=== PATIENT | female | born 2000 | race American Indian/Alaskan Native ===

== ENCOUNTER 2019-01-18 12:18 | Outpatient (CLI) | payer MEDICAID ==
[2019-01-18 12:54] VITALS: BP 108/66
== END 2019-01-18 12:20 | disposition still patient (30) ==
LOC: TRG 12:18
PROVIDERS: ATTEND Obstetrics & Gynecology
DX: O47.03 False labor before 37 completed weeks of gestation, third trimester (principal); Z3A.30 30 weeks gestation of pregnancy
CPT/HCPCS: 59025

== ENCOUNTER 2019-01-18 13:26 | Emergency (ER) | payer MEDICAID ==
[2019-01-18] MEDS ORDERED: NACL 0.9% 1000 ML 1,000 ML IV ONE ×2 (13:44→15:18)
[2019-01-18] MEDS ORDERED: MORPHINE IV ONE (13:44)
[2019-01-18] MEDS ORDERED: PEPCID IV ONE (13:44)
[2019-01-18] MEDS ORDERED: ZOFRAN IV ONE (13:45)
[2019-01-18 13:48] VITALS: BP 106/58
[2019-01-18 14:26] LABS: Basophils % (Auto) 0.2 % (0.0-1.8); Eosinophils % (Auto) 0.1 % (0.0-4.3); Hematocrit 33.6 % (30.3-42.9); Hemoglobin 11.4 gm/dl (10.1-14.3); Lymphocytes % (Auto) 8.1 % (13.4-35.0); Mean Corpuscular HGB Conc 34 % (30-34); Mean Corpuscular Volume 86 fl (79-97); Monocytes # (Auto) 0.4 K/mm3 (0.0-0.8); Monocytes % (Auto) 3.6 % (0.0-7.3); Platelet Count 192 K/mm3 (140-440); Red Blood Count 3.91 M/mm3 (3.65-5.03); Red Cell Distribution Width 13.5 % (13.2-15.2)
[2019-01-18 14:51] LABS: Alanine Aminotransferase 22 units/L (7-56); Albumin 3.9 g/dL (3.9-5); BUN/Creatinine Ratio 22; Blood Urea Nitrogen 13 mg/dL (7-17); Calcium 8.8 mg/dL (8.4-10.2); Hemolysis Index 1
[2019-01-18 15:04] LABS: Bilirubin,Direct < 0.2 mg/dL (0-0.2)
[2019-01-18] MEDS ORDERED: BENADRYL IV ONE (15:18)
[2019-01-18] MEDS ORDERED: TYLENOL PO ONE (15:18)
--- NOTE | 2019-01-18 15:25 | Emergency Department Report ---
ED Abdominal Pain HPI - General Chief Complaint: Abdominal Pain Stated Complaint: ABD PAIN/CRAMPING/ 7 MTHS PREG Time Seen by Provider: 01/18/19 15:12 Source: patient Mode of arrival: Wheelchair Limitations: No Limitations - History of Present Illness Initial Comments: Karen is a 18 yo female who is currently 30 weeks 2 days according to [facility] 03/27/2019. She awakened with epigastric pain this morning. Pulling sensation. vomiting filled 10 emesis bags today. 2 episodes of diarrhea. Stool culture obtained in L&D. Ate fast food [employer] last night. Had morning sickness in the first trimester. No vomiting since. [facility] hx of infectious colitis one year ago, diagnosed in [facility] Complaint: abdominal pain -: Gradual, This morning Location: epigastric Radiation: none Severity: moderate Quality: fullness, dull Consistency: constant Improves With: nothing Worsens With: nothing Context: possible food poisoning Associated Symptoms: nausea, vomiting, diarrhea - Related Data Previous Rx's Medication Instructions Recorded Last Taken Type Ondansetron [Zofran Odt] 4 mg PO Q8HR #6 tab.rapdis 01/18/19 Unknown Rx Allergies Allergy/AdvReac Type Severity Reaction Status Date / Time No Known Allergies Allergy Unverified 01/18/19 13:35 ED Review of Systems ROS: Stated complaint: ABD PAIN/CRAMPING/ 7 MTHS PREG Other details as noted in HPI Comment: All other systems reviewed and negative Constitutional: malaise. denies: fever Cardiovascular: denies: palpitations Gastrointestinal: abdominal pain, nausea, vomiting, diarrhea Musculoskeletal: denies: back pain ED Past Medical Hx - Past Medical History Previous Medical History?: No Hx Hypertension: No Hx Diabetes: No Hx Deep Vein Thrombosis: No Hx Renal Disease: No Hx Sickle Cell Disease: No Hx Seizures: No Hx Asthma: No Hx HIV: No - Surgical History Past Surgical History?: No - Family History Family history: other (mother with colitis) - Social History Smoking Status: Never Smoker Substance Use Type: None - Medications Home Medications: Home Medications Medication Instructions Recorded Confirmed Last Taken Type Ondansetron [Zofran Odt] 4 mg PO Q8HR #6 tab.rapdis 01/18/19 Unknown Rx ED Physical Exam - General Limitations: No Limitations General appearance: alert, in no apparent distress - Head Head exam: Present: atraumatic, normocephalic - Eye Eye exam: Present: normal appearance - ENT ENT exam: Present: mucous membranes moist - Neck Neck exam: Present: normal inspection, full ROM - Respiratory Respiratory exam: Present: normal lung sounds bilaterally. Absent: respiratory distress, wheezes, rales, rhonchi - Cardiovascular Cardiovascular Exam: Present: regular rate, normal rhythm, normal heart sounds. Absent: systolic murmur, diastolic murmur, rubs, gallop - GI/Abdominal GI/Abdominal exam: Present: soft, distended (gravid), normal bowel sounds. A bsent: tenderness, guarding, rebound - Extremities Exam Extremities exam: Present: normal inspection - Back Exam Back exam: Present: normal inspection - Neurological Exam Neurological exam: Present: alert, oriented X3 - Psychiatric Psychiatric exam: Present: normal affect, normal mood - Skin Skin exam: Present: warm, dry, intact, normal color. Absent: rash ED Course Vital Signs 01/18/19 13:46 Temperature 98.7 F Pulse Rate 96 H Respiratory 20 Rate Blood Pressure 106/58 O2 Sat by Pulse 99 Oximetry ED Medical Decision Making - Lab Data Result diagrams: 01/18/19 14:06 01/18/19 14:06 - Medical Decision Making Karen presents with vomiting and diarrhea, suspect food poisoning. CMP WNL, nonspecific leukocytosis No indication of peritonitis. I do not suspect cholecystitis or appendicitis. Differential diagnosis includes cholelithiasis, gastritis, peptic ulcer disease. Karen was evaluated in labor and delivery to rule out labor prior to ED evaluation. Karen treated with IVF IV analgesia, IV antiemetics, IV H2 antagonist. Sympt oms improved. No vomiting occurred during ED observation. Rx: zofran. dx: food poisoning, Critical care attestation.: If time is entered above; I have spent that time in minutes in the direct care of this critically ill patient, excluding procedure time. ED Disposition Clinical Impression: Food poisoning, Third trimester Disposition: DC-01 TO HOME OR SELFCARE Is pt being admited?: No Does the pt Need Aspirin: No Condition: Stable Instructions: Food Poisoning (ED) Prescriptions: Ondansetron [Zofran Odt] 4 mg PO Q8HR #6 tabsusu
== END 2019-01-18 17:37 | disposition home or self-care (01) ==
LOC: ED 13:26
DX: O9A.213 Injury, poisoning and certain other consequences of external causes complicating pregnancy, third trimester (principal); Z3A.30 30 weeks gestation of pregnancy
CPT/HCPCS: 36415; 80048; 80076; 83690; 85025; 96361; 96374; 96375; 99283; J1200; J2405; J7030

== ENCOUNTER 2019-01-30 15:40 | Outpatient (CLI) | payer MEDICAID ==
[2019-01-30] MEDS ORDERED: BETAMET ACET/BETAMET NA PH 6 MG/ML INJ 5 ML MDV IM SCH (17:00)
== END 2019-01-30 16:58 | disposition home or self-care (01) ==
LOC: TRG 15:40
PROVIDERS: ATTEND Obstetrics & Gynecology
DX: O36.0110 Maternal care for anti-D [Rh] antibodies, first trimester, not applicable or unspecified (principal); Z31.82 Encounter for Rh incompatibility status; Z3A.08 8 weeks gestation of pregnancy
CPT/HCPCS: 86850; 86900; 86901; 96372; J0702; J2790

== ENCOUNTER 2019-03-14 06:08 | Inpatient (IN) | payer MEDICAID ==
--- NOTE | 2019-03-14 16:01 | History and Physical Report ---
History of Present Illness Date of examination: 03/14/19 Date of admission: 03/14/19 14:20 Chief complaint: 18 year old female presents to L&D with contractions. Denies LOF or VB. Reports active movement. Patient received care at [facility] and records are available. LMP 06/20/18. EDC 03/27/19. significant for the following: anemia (on oral iron supplements), family history of autism (brother), gonorrhea (treated, TREVOR negative), late care and late transfer in from [place], positive FFN (received steroid injection times 2 at [facility]), Rh negative (received RhoGAM). labs are as follows: A negative, antibody screen negative, rubella immune, RPR nonreactive, HIV negative, hepatitis B surface antigen negative, hemoglobin electrophoresis AA, gonorrhea negative, chlamydia negative, varicella immune, HSV 2 negative, trichomonas negative, GBS negative. Past History Past Medical History: no pertinent history Past Surgical History: no surgical history [facility] History: gonorrhea (treated during and cured). denies: chlamydia, hepatitis B, herpes, HIV, syphilis, trichomonas Family/Genetic History: diabetes, hypertension, other (hepatitis) Social history: single, lives with family, full code. denies: smoking, alcohol abuse, prescription drug abuse, IV drug use - Obstetrical History Expected Date of Delivery: 03/27/19 Actual Gestation: 38 Week(s) 1 Day(s) : 1 Para: 0 Hx # Term Pregnancies: 0 Number of Pregnancies: 0 Spontaneous Abortions: 0 Induced : 0 Number of Living Children: 0 Medications and Allergies Allergies Allergy/AdvReac Type Severity Reaction Status Date / Time No Known Allergies Allergy Verified 01/24/19 12:48 Home Medications Medication Instructions Recorded Confirmed Last Taken Type 147/Iron/Folic Acid 1 tab PO DAILY 01/30/19 03/14/19 03/13/19 History Active Meds: Active Medications Multivitamins/Iron/Calcium ( Vitamin) 1 each PO QDAY ARPIT Review of Systems All systems: negative (contractions) - Vital Signs Vital signs: Vital Signs Pulse BP 59 L 110/54 03/14/19 06:25 03/14/19 06:25 Temp Pulse Resp BP Pulse Ox 97.4 F L 73 16 122/58 98 03/14/19 14:46 03/14/19 15:54 03/14/19 14:46 03/14/19 14:42 03/14/19 15:54 - Physical Exam Abdomen: Positive: normal appearance, soft. Negative: distention, tenderness, guarding, rigidity Genitourinary (Female): Positive: normal external genitalia, normal perenium. Negative: perineal/vulvar lesions Vagina: Positive: normal moisture Uterus: Positive: enlarged (S=D) Anus/Rectum: Positive: normal perianal skin Extremities: Positive: normal. Negative: tenderness, edema - Obstetrical FHR: category 1 Uterine Contraction Monitor Mode: External Cervical Dilatation: 4 Cervical Effacement Percentage: 70 station: -1 Uterine Contraction Pattern: Regular Uterine Contraction Intensity: Moderate Results Result Diagrams: 03/14/19 15:15 All other labs normal. Assessment and Plan A: at 38 weeks, 1 day gestation. Early labor vs. prodromal labor. Lives distance from hospital. GBS negative. P: Admit for 23 hour observation. EFM. Recheck cervix.
[2019-03-14 16:04] LABS: Basophils % (Auto) 0.6 % (0.0-1.8); Eosinophils % (Auto) 0.6 % (0.0-4.3); Hematocrit 29.2 % (30.3-42.9); Hemoglobin 10.2 gm/dl (10.1-14.3); Lymphocytes # (Auto) 1.7 K/mm3 (1.2-5.4); Lymphocytes % (Auto) 21.5 % (13.4-35.0); Mean Corpuscular HGB Conc 35 % (30-34); Mean Corpuscular Volume 85 fl (79-97); Monocytes # (Auto) 0.4 K/mm3 (0.0-0.8); Monocytes % (Auto) 4.6 % (0.0-7.3); Platelet Count 128 K/mm3 (140-440); Red Blood Count 3.46 M/mm3 (3.65-5.03); Red Cell Distribution Width 14.3 % (13.2-15.2)
--- NOTE | 2019-03-15 09:33 | Progress Note ---
Assessment and Plan A: at 38 weeks, 2 days gestation. Early labor. GBS negative. Variable FHR deceleration. P: Continuous EFM. Anticipate that patient will soon be in active labor. Position changes. Subjective - Subjective Date of service: 03/15/19 Principal diagnosis: at 38 weeks, 2 days getation Interval history: Early labor. Lives long way from hospital. No leaking of fluid. No vaginal bleeding. Reports active movement. Patient reports: movement normal, contractions, no new complaints, no loss of fluid, no vaginal bleeding Objective - Vital Signs Vital Signs: Vital Signs - 12hr 03/15/19 03/15/19 03/15/19 03:23 06:33 07:10 Temperature 97.6 F 97.9 F 98.1 F Pulse Rate 55 L Respiratory 16 14 Rate Blood Pressure 98/54 Blood Pressure 98/54 [Left] 03/15/19 07:14 Temperature Pulse Rate 51 L Respiratory Rate Blood Pressure 119/70 Blood Pressure [Left] - Exam Abdomen: Present: normal appearance, soft. Absent: distention, tenderness, guarding, rigidity Uterus: Present: normal, fundal height above umbilicus. Absent: tenderness FHR: category 2 FHR comments: Occasional brief variable FHR deceleration with rapid return to normal FHR baseline; moderate variability. Uterine Contraction Monitor Mode: External Cervical Dilatation: 4.5 Cervical Effacement Percentage: 90 station: -1/BBOW/cervix anterior Uterine Contraction Pattern: Irregular Uterine Contraction Intensity: Moderate Extremities: normal - Labs Labs: Abnormal Labs 03/14/19 15:15 RBC 3.46 L Hct 29.2 L MCHC 35 H Plt Count 128 L Seg Neutrophils % 72.7 H Laboratory Results - last 24 hr 03/14/19 15:15 WBC 8.1 RBC 3.46 L Hgb 10.2 Hct 29.2 L MCV 85 MCH 30 MCHC 35 H RDW 14.3 Plt Count 128 L Lymph % (Auto) 21.5 [place] % (Auto) 4.6 Eos % (Auto) 0.6 Baso % (Auto) 0.6 Lymph # 1.7 [place] # 0.4 Eos # 0.0 Baso # 0.0 Seg Neutrophils % 72.7 H Seg Neutrophils # 5.9
[2019-03-15] MEDS: PRENATAL VIT27-FE FUMARATE-FOLIC ACID VIT TAB PO SCH (10:13)
--- NOTE | 2019-03-15 15:23 | Event Note ---
Date: 03/15/19 SVE /-/BBOW. Category 1 heart rate tracing.
[2019-03-15] MEDS ORDERED: fentaNYL 100 MCG/2 ML INJ IV PRN (16:16)
[2019-03-15] MEDS ORDERED: AMPICILLIN/NS 2 GM/100 ML 2 GM/100 ML BAG IV ONE (16:16)
[2019-03-15] MEDS ORDERED: LIDOCAINE (2%) 20 MG/1 ML VIAL 20 ML MDV INFILTRATI ONE (16:16)
[2019-03-15] MEDS ORDERED: ePHEDrine SULFATE 50 MG/1 ML INJ IV PRN (16:16)
[2019-03-15] MEDS ORDERED: OXYTOCIN 20 UNIT/1000ML DRIP 20 UNITS/1,000 ML BAG IV SCH (17:00)
[2019-03-15] MEDS: LACTATED RINGERS 1,000 ML IV SCH (17:51)
--- NOTE | 2019-03-15 20:55 | Event Note ---
Date: 03/15/19 Patient requests to have her cervix checked. Cervix unchanged from last exam: /-. Patient declined augmentation of labor with Pitocin. Patient requests to walk. Category 1 heart rate tracing. Contractions every 5 to 8 minutes.
[2019-03-15] MEDS: AMPICILLIN/NS 1 GM/50 ML 1 GM/50 ML BAG IV SCH ×2 (21:53→21:54)
[2019-03-16] MEDS ORDERED: OXYTOCIN DRIP 30 UNITS/500 ML BAG IV SCH (01:00)
[2019-03-16] MEDS ORDERED: ACETAMINOPHEN 325 MG TAB PO ONE (01:21)
[2019-03-16] MEDS: AMPICILLIN/NS 1 GM/50 ML 1 GM/50 ML BAG IV SCH ×4 (02:32→14:57)
[2019-03-16] MEDS: LACTATED RINGERS 1,000 ML IV SCH ×4 (02:39→12:52)
--- NOTE | 2019-03-16 06:43 | Event Note ---
Date: 03/16/19 Cervix is now 6 cm dilated. Patient consented to Pitocin augmentation of labor.
[2019-03-16] MEDS ORDERED: BUPIVACAINE/PF (0.25%) 2.5 MG/ML 10 ML VIAL INFILTRATI ONE ×2 (08:55→13:43)
--- NOTE | 2019-03-16 09:20 | Anesthesia Consultation ---
Anesthesia Consult and Med Hx Date of service: 03/16/19 - Airway Anesthetic Teeth Evaluation: Good ROM Head & Neck: Adequate Mental/Hyoid Distance: Adequate Mallampati Class: Class II Intubation Access Assessment: Good - Pulmonary Exam CTA: Yes - Cardiac Exam Cardiac Exam: RRR - Pre-Operative Health Status ASA Pre-Surgery Classification: ASA2, Emergency Proposed Anesthetic Plan: Epidural, Spinal - Pulmonary Hx Asthma: No COPD: No Hx Pneumonia: No - Cardiovascular System Hx Hypertension: No - Central Nervous System Hx Seizures: No Hx Psychiatric Problems: No - Endocrine Hx Renal Disease: No Hx End Stage Renal Disease: No Hx Hypothyroidism: No Hx Hyperthyroidism: No - Hematic Hx Anemia: No Hx Sickle Cell Disease: No - Other Systems Hx Alcohol Use: No
[2019-03-16] MEDS ORDERED: ePHEDrine SULFATE 50 MG/1 ML INJ IV PRN (09:30)
[2019-03-16] MEDS ORDERED: NALOXONE 2 MG/2 ML INJ IV PRN (09:30)
[2019-03-16] MEDS: PRENATAL VIT27-FE FUMARATE-FOLIC ACID VIT TAB PO SCH (09:52)
[2019-03-16] MEDS ORDERED: fentaNYL-BUPIV 2 MCG/ML-0.125% 200 MCG/100 ML BAG EPIDURAL SCH (10:00)
--- NOTE | 2019-03-16 10:19 | Progress Note ---
Assessment and Plan - Patient Problems (1) 38 weeks gestation of Current Visit: Yes Status: Acute (2) Active labor at term Current Visit: Yes Status: Acute Plan to address problem: Continue routine labor orders Pitocin @ 12 mu/min AROM @ 10:07, clear fluid, moderate amount Continue labor augmentation with Pitocin Anticipate vaginal delivery (3) Anemia affecting in third trimester Current Visit: Yes Status: Acute Plan to address problem: Mild, Asymptomatic Start iron therapy Subjective - Subjective Date of service: 03/16/19 Principal diagnosis: IUP @ 38 weeks 3 days; Active Labor Interval history: see H&P, OB Progress Notes and Event Notes Patient reports: new complaints (pressure), movement normal, contractions, other (Epidural in place), no loss of fluid, no vaginal bleeding Objective - Vital Signs Vital Signs: Vital Signs - 12hr 03/16/19 03/16/19 03/16/19 01:15 01:16 01:27 Temperature 97.9 F Pulse Rate 60 62 Respiratory 18 18 Rate Blood Pressure 123/73 Blood Pressure 123/75 [Right] O2 Sat by Pulse 100 99 Oximetry 03/16/19 03/16/19 03/16/19 03:20 03:25 05:42 Temperature Pulse Rate 69 67 49 L Respiratory Rate Blood Pressure 100/59 Blood Pressure [Right] O2 Sat by Pulse 99 100 100 Oximetry 03/16/19 03/16/19 03/16/19 05:47 05:52 05:57 Temperature Pulse Rate 52 L 55 L 99 H Respiratory Rate Blood Pressure Blood Pressure [Right] O2 Sat by Pulse 99 98 100 Oximetry 03/16/19 03/16/19 03/16/19 06:02 06:13 06:16 Temperature Pulse Rate 62 59 L 54 L Respiratory Rate Blood Pressure 116/64 Blood Pressure [Right] O2 Sat by Pulse 99 100 Oximetry 03/16/19 03/16/19 03/16/19 06:18 06:23 06:28 Temperature Pulse Rate 55 L 52 L 56 L Respiratory Rate Blood Pressure Blood Pressure [Right] O2 Sat by Pulse 100 99 100 Oximetry 03/16/19 03/16/19 03/16/19 06:33 06:38 06:43 Temperature Pulse Rate 75 57 L 52 L Respiratory Rate Blood Pressure Blood Pressure [Right] O2 Sat by Pulse 100 100 100 Oximetry 03/16/19 03/16/19 03/16/19 06:57 07:02 07:07 Temperature Pulse Rate 63 65 68 Respiratory Rate Blood Pressure 121/76 Blood Pressure [Right] O2 Sat by Pulse 100 100 100 Oximetry 03/16/19 03/16/19 03/16/19 07:09 07:12 07:17 Temperature 98.5 F Pulse Rate 65 57 L 55 L Respiratory 16 Rate Blood Pressure 119/68 Blood Pressure [Right] O2 Sat by Pulse 100 100 100 Oximetry 03/16/19 03/16/19 03/16/19 07:22 07:27 07:32 Temperature Pulse Rate 54 L 60 74 Respiratory Rate Blood Pressure Blood Pressure [Right] O2 Sat by Pulse 99 100 100 Oximetry 03/16/19 03/16/19 03/16/19 07:37 07:42 07:47 Temperature Pulse Rate 56 L 68 68 Respiratory Rate Blood Pressure 124/82 Blood Pressure [Right] O2 Sat by Pulse 99 100 100 Oximetry 03/16/19 03/16/19 03/16/19 07:52 07:57 08:02 Temperature Pulse Rate 69 68 67 Respiratory Rate Blood Pressure Blood Pressure [Right] O2 Sat by Pulse 99 99 100 Oximetry 03/16/19 03/16/19 03/16/19 08:04 08:07 08:12 Temperature Pulse Rate 80 57 L 55 L Respiratory Rate Blood Pressure Blood Pressure [Right] O2 Sat by Pulse 93 100 100 Oximetry 03/16/19 03/16/19 03/16/19 08:17 08:19 08:22 Temperature Pulse Rate 55 L 63 57 L Respiratory Rate Blood Pressure 125/60 Blood Pressure [Right] O2 Sat by Pulse 100 88 100 Oximetry 03/16/19 03/16/19 03/16/19 08:27 08:32 08:37 Temperature Pulse Rate 58 L 59 L 62 Respiratory Rate Blood Pressure Blood Pressure [Right] O2 Sat by Pulse 100 100 100 Oximetry 03/16/19 03/16/19 03/16/19 08:42 08:46 08:47 Temperature Pulse Rate 72 60 63 Respiratory 18 Rate Blood Pressure 121/74 Blood Pressure [Right] O2 Sat by Pulse 100 100 Oximetry 03/16/19 03/16/19 03/16/19 08:52 08:57 09:00 Temperature Pulse Rate 63 96 H 77 Respiratory Rate Blood Pressure 131/77 Blood Pressure [Right] O2 Sat by Pulse 99 100 Oximetry 03/16/19 03/16/19 03/16/19 09:02 09:03 09:06 Temperature Pulse Rate 69 74 62 Respiratory Rate Blood Pressure 138/80 134/78 Blood Pressure [Right] O2 Sat by Pulse 100 Oximetry 03/16/19 03/16/19 03/16/19 09:07 09:08 09:09 Temperature Pulse Rate 66 70 61 Respiratory Rate Blood Pressure 143/72 Blood Pressure [Right] O2 Sat by Pulse 98 82 L Oximetry 03/16/19 03/16/19 03/16/19 09:12 09:15 09:17 Temperature Pulse Rate 59 L 63 65 Respiratory Rate Blood Pressure 124/70 121/67 Blood Pressure [Right] O2 Sat by Pulse 100 100 Oximetry 03/16/19 03/16/19 03/16/19 09:18 09:21 09:22 Temperature Pulse Rate 71 62 57 L Respiratory Rate Blood Pressure 120/63 122/66 Blood Pressure [Right] O2 Sat by Pulse 100 Oximetry 03/16/19 03/16/19 03/16/19 09:24 09:27 09:30 Temperature Pulse Rate 60 60 56 L Respiratory Rate Blood Pressure 118/65 107/56 113/67 Blood Pressure [Right] O2 Sat by Pulse 100 Oximetry 03/16/19 03/16/19 03/16/19 09:32 09:33 09:36 Temperature Pulse Rate 54 L 54 L 130 H Respiratory Rate Blood Pressure 115/64 112/67 Blood Pressure [Right] O2 Sat by Pulse 100 Oximetry 03/16/19 03/16/19 03/16/19 09:37 09:39 09:42 Temperature Pulse Rate 62 73 60 Respiratory Rate Blood Pressure 116/65 119/69 Blood Pressure [Right] O2 Sat by Pulse 100 100 Oximetry 03/16/19 03/16/19 03/16/19 09:47 09:52 09:57 Temperature Pulse Rate 67 65 108 H Respiratory Rate Blood Pressure 137/68 Blood Pressure [Right] O2 Sat by Pulse 100 100 99 Oximetry 03/16/19 03/16/19 03/16/19 10:00 10:02 10:07 Temperature Pulse Rate 71 66 81 Respiratory Rate Blood Pressure Blood Pressure [Right] O2 Sat by Pulse 81 L 96 68 L Oximetry 03/16/19 03/16/19 03/16/19 10:12 10:15 10:17 Temperature Pulse Rate 63 77 67 Respiratory Rate Blood Pressure Blood Pressure [Right] O2 Sat by Pulse 100 92 90 Oximetry - Exam FHR: auscultation normal, category 1 FHR comments: baseline 130, moderate variability, 15x15 accels, no decels Uterine Contraction Monitor Mode: External Cervical Dilatation: 6 Cervical Effacement Percentage: 60 station: -1 Uterine Contraction Frequency (min): 2-3 Uterine Contraction Pattern: Regular - Labs Labs: Abnormal Labs 03/14/19 15:15 RBC 3.46 L Hct 29.2 L MCHC 35 H Plt Count 128 L Seg Neutrophils % 72.7 H Laboratory Results - last 24 hr 03/15/19 03/15/19 10:26 10:31 Syphilis IgG Antibody Non-reactive Blood Type A NEGATIVE Antibody Screen Positive Antibody Identification Anti-D (Passively Aquired)
[2019-03-16] MEDS ORDERED: MINERAL OIL 30 ML ORAL LIQD ONE (16:55)
--- NOTE | 2019-03-16 17:35 | Procedure Note ---
OB Delivery Note - Delivery Date of Delivery: 03/16/19 (17:04) Surgeon: ALEXANDRE PITTS (NOEL) Estimated blood loss: 200cc - Vaginal Delivery presentation: vertex Delivery position: OP Intrapartum events: none Delivery induction: oxytocin Delivery augmentation: rupture of membranes (AROM) Delivery monitor: external FHT, external uterine Route of delivery: (17:04) Delivery placenta: spontaneous (17:11) Delivery cord: 3 umbilical vessels Episiotomy: none Delivery laceration: vaginal side wall (1st degree) Delivery repair: vicryl (3-0 CT1) Anesthesia: epidural Delivery comments: of a vigorous term 6 lbs 3 oz female on 03/16/19 @ 17:04. Baby placed [id number] on maternal abdomen, dried & bulb-suctioned. After 3 mins, umbilical cord double-clamped by NOEL [place] and cut by pt's mom. Cord blood collected. Spontaneous delivery of placenta, Ceci-side presenting @ 17:11. Small lochia noted. Fundal massage and IV Pitocin bolus initiated. Fundus F/ML/U-3. Placenta intact; was discarded. 1st degree vaginal side wall laceration noted and repaired. Pt tolerated the procedure well. Perineum intact. Mom and baby in stable condition. - A at 1 minute: 8 at 5 minutes: 9 Infant Gender: Female (6 lbs 3 oz (2805 gm); 19 in)
[2019-03-16] MEDS ORDERED: WITCH HAZEL/ GLYCERIN PAD TP PRN (17:37)
[2019-03-16] MEDS ORDERED: diphenhydrAMINE 25 MG CAP PO PRN (17:37)
[2019-03-16] MEDS ORDERED: PROMETHAZINE 25 MG RECT SUPP PR PRN (17:37)
[2019-03-16] MEDS ORDERED: LANOLIN/ZINC/DIMETHICONE (LANSINOH) 7 GM TP PRN (17:37)
[2019-03-16] MEDS ORDERED: PROMETHAZINE 25 MG TAB PO PRN (17:37)
[2019-03-16] MEDS ORDERED: ONDANSETRON 4 MG/2 ML INJ IV PRN (17:37)
[2019-03-16] MEDS ORDERED: ACETAMINOPHEN 325 MG TAB PO PRN (17:37)
[2019-03-16] MEDS ORDERED: MAGNESIUM HYDROXIDE (MOM) ORAL LIQD UDC PO PRN (17:37)
[2019-03-17] MEDS: IBUPROFEN 600 MG TAB PO SCH ×4 (03:21→17:53)
[2019-03-17] MEDS: FERROUS SULFATE 325 MG TAB PO SCH ×3 (03:28→21:01)
[2019-03-17 08:52] LABS: Hematocrit 26.6 % (30.3-42.9)
[2019-03-17] MEDS: PRENATAL VIT27-FE FUMARATE-FOLIC ACID VIT TAB PO SCH (09:45)
[2019-03-17] MEDS: HYDROcodone/ACETAMINOPHEN 5-325 MG TAB PO PRN ×2 (09:45→19:32)
--- NOTE | 2019-03-17 11:22 | Progress Note ---
Assessment and Plan - Patient Problems (1) (normal spontaneous vaginal delivery) Current Visit: Yes Status: Acute Plan to address problem: Continue routine PP orders Anticipate d/c home tomorrow (2) Anemia Current Visit: Yes Status: Acute Qualifiers: Anemia type: iron deficiency Subjective - Subjective Date of service: 03/17/19 Principal diagnosis: S/P ; PPD#1 Interval history: See admission H & P; OB delivery summary and PP progress notes Patient reports: appetite normal, voiding normally, pain well controlled, flatus, bowel movement, ambulating normally : doing well ( well) Objective - Vital Signs Latest vital signs: Vital Signs Temp Pulse Resp BP BP Pulse Ox 03/17/19 09:45 20 03/17/19 08:10 98.7 F 53 L 20 133/63 03/17/19 06:18 98.0 F 60 18 98/53 98 03/17/19 00:37 98.6 F 62 16 120/60 99 03/16/19 19:50 99.1 F 62 18 119/54 99 03/16/19 19:07 98.6 F 03/16/19 18:28 62 77 L 03/16/19 18:23 59 L 99 03/16/19 18:18 61 100 03/16/19 18:13 62 99 03/16/19 18:10 63 121/67 03/16/19 18:09 99.7 F H 69 18 121/67 03/16/19 18:08 71 100 03/16/19 18:03 63 100 03/16/19 17:42 80 111/81 03/16/19 17:31 96 H 100 03/16/19 17:26 104 H 100 03/16/19 17:21 87 100 03/16/19 17:16 80 126/58 100 03/16/19 16:45 106 H 141/63 03/16/19 16:14 99.5 F 89 83 L 03/16/19 16:13 87 149/84 92 03/16/19 16:09 72 100 03/16/19 16:04 83 93 03/16/19 15:59 77 76 L 03/16/19 15:58 79 94 03/16/19 15:54 68 96 03/16/19 15:52 65 89 03/16/19 15:49 73 100 03/16/19 15:44 71 100 03/16/19 15:43 68 132/69 03/16/19 15:39 87 100 03/16/19 15:34 79 100 03/16/19 15:29 82 100 03/16/19 15:24 65 100 03/16/19 15:19 67 100 03/16/19 15:14 57 L 100 03/16/19 15:12 59 L 127/66 03/16/19 15:09 58 L 100 03/16/19 15:04 57 L 100 03/16/19 15:00 98.4 F 63 16 100 03/16/19 14:59 69 100 03/16/19 14:54 66 100 03/16/19 14:50 74 94 03/16/19 14:49 85 100 03/16/19 14:44 70 100 03/16/19 14:43 70 127/66 03/16/19 14:39 83 100 03/16/19 14:34 76 100 03/16/19 14:29 71 100 03/16/19 14:24 63 100 03/16/19 14:19 65 100 03/16/19 14:14 75 100 03/16/19 14:12 73 120/69 03/16/19 14:09 57 L 100 03/16/19 14:04 69 100 03/16/19 13:59 69 100 03/16/19 13:54 67 100 03/16/19 13:49 66 100 03/16/19 13:42 70 131/70 98 03/16/19 13:37 84 03/16/19 13:36 84 87 03/16/19 13:32 61 100 03/16/19 13:27 65 100 03/16/19 13:22 71 100 03/16/19 13:17 73 100 03/16/19 13:13 64 132/69 03/16/19 13:12 62 100 03/16/19 13:07 54 L 99 03/16/19 13:02 56 L 100 03/16/19 12:57 56 L 100 03/16/19 12:52 59 L 100 03/16/19 12:47 64 100 03/16/19 12:44 59 L 119/62 03/16/19 12:42 65 100 03/16/19 12:37 78 100 03/16/19 12:32 57 L 99 03/16/19 12:27 61 100 03/16/19 12:22 57 L 100 03/16/19 12:17 60 100 03/16/19 12:13 97.9 F 55 L 18 118/66 100 03/16/19 12:12 53 L 100 03/16/19 12:07 57 L 100 03/16/19 12:02 59 L 99 03/16/19 11:57 63 100 03/16/19 11:52 60 100 03/16/19 11:47 75 100 03/16/19 11:42 57 L 114/69 100 03/16/19 11:37 58 L 100 03/16/19 11:33 54 L 110/71 03/16/19 11:32 67 99 03/16/19 11:27 61 100 03/16/19 11:22 69 100 Intake and Output 03/16/19 03/17/19 03/17/19 23:59 07:59 15:59 Intake Total 240 240 240 Output Total 1000 700 400 Balance -760 -460 -160 Intake: Oral 240 Intake, Free Water 240 240 Output: Urine 1000 700 400 Void 1000 700 400 Other: Total, Intake Amount 240 Total, Output Amount 600 300 400 Estimated Blood Loss 200 - Exam Breasts: Present: normal Cardiovascular: Present: Regular rate Lungs: Present: Normal air movement Abdomen: Present: soft Uterus: Present: firm, fundal height below umbilicus (U-1) Extremities: Present: edema (Bilat feet and ankles) Deep Tendon Reflex Grade: Normal +2 - Labs Labs: Abnormal lab results 03/17/19 Range/Units 08:05 Hgb 9.0 L (10.1-14.3) gm/dl Hct 26.6 L (30.3-42.9) %
--- NOTE | 2019-03-17 11:31 | Discharge Summary ---
Providers - Providers Date of Admission: 03/14/19 14:20 Date of discharge: 03/18/19 (1200) Attending physician: ABHAY ALTMAN Primary care physician: ABHAY ALTMAN Hospitalization Reason for admission: active labor Delivery: Episiotomy: none Laceration: 1st degree (healing as expected) Other procedures: none complications: none Discharge diagnosis: other (S/P ; Anemia) [place] baby: female Hospital course: See admission H & P; OB delivery summary and PP progress notes Condition at discharge: Good Disposition: DC-01 TO HOME OR SELFCARE - Discharge Diagnoses (1) (normal spontaneous vaginal delivery) Status: Acute (2) Anemia Status: Acute Qualifiers: Anemia type: iron deficiency Plan - Discharge Medications Prescriptions: Ferrous Sulfate [Feosol 325 MG tab] 325 mg PO BID 30 Days #60 tablet - Provider Discharge Summary Activity: routine, no sex for 6 weeks, no heavy lifting 4 weeks, no strenuous exercise Diet: other (Iron rich diet) Instructions: routine Additional instructions: [] Smoking cessation referral if applicable(refer to patient education folder for contact #) [] Refer to [facility]'s [facility] Center Booklet Call your doctor immediately for: * Fever > 100.5 * Heavy vaginal bleeding ( >1 pad per hour) * Severe persistent headache * Shortness of breath * Reddened, hot, painful area to leg or breast * Drainage or odor from incision. * Keep laceration site clean and dry at all times and follow doctor's instructions regarding bathing/showering - Follow up plan Follow up: ABHAY ALTMAN MD [Primary Care Provider] - 6 Weeks
[2019-03-18] MEDS: IBUPROFEN 600 MG TAB PO SCH ×3 (03:04→09:30)
[2019-03-18] MEDS: HYDROcodone/ACETAMINOPHEN 5-325 MG TAB PO PRN (04:30)
--- NOTE | 2019-03-18 04:50 | Post Anesthesia Evaluation ---
- Post Anesthesia Evaluation Patient Participated: Yes Airway Patent: Yes Stable Respiratory Function: Yes Nausea/Vomiting: No Temp > 96.8F: Yes Pain Manageable: Yes Adequeate Hydration: Yes Anesthesia Complications: No Block Receding Appropriately: Yes Patient on Ventilator: No
[2019-03-18 08:40] VITALS: BP 112/57
[2019-03-18] MEDS: PRENATAL VIT27-FE FUMARATE-FOLIC ACID VIT TAB PO SCH (09:30)
[2019-03-18] MEDS: FERROUS SULFATE 325 MG TAB PO SCH (09:30)
== END 2019-03-18 18:45 | disposition home or self-care (01) | DRG 775 ==
LOC: TRG 06:08 → LD 14:20 → OB 03-16 20:02
PROVIDERS: ADMIT Obstetrics & Gynecology; ATTEND Obstetrics & Gynecology
PROC: 3E033VJ Introduction of Other Hormone into Peripheral Vein, Percutaneous Approach (ICD-10-PCS; 2019-03-14)
PROC: 10E0XZZ Delivery of Products of Conception, External Approach (ICD-10-PCS; principal; 2019-03-16)
PROC: 3E0R3BZ Introduction of Anesthetic Agent into Spinal Canal, Percutaneous Approach (ICD-10-PCS; 2019-03-16)
PROC: 00HU33Z Insertion of Infusion Device into Spinal Canal, Percutaneous Approach (ICD-10-PCS; 2019-03-16)
PROC: 10907ZC Drainage of Amniotic Fluid, Therapeutic from Products of Conception, Via Natural or Artificial Opening (ICD-10-PCS; 2019-03-16)
PROC: 0HQ9XZZ Repair Perineum Skin, External Approach (ICD-10-PCS; 2019-03-16)
PROC: 3E0234Z Introduction of Serum, Toxoid and Vaccine into Muscle, Percutaneous Approach (ICD-10-PCS; 2019-03-17)
DX: O99.02 Anemia complicating childbirth (principal); O70.0 First degree perineal laceration during delivery; O99.013 Anemia complicating pregnancy, third trimester; O76 Abnormality in fetal heart rate and rhythm complicating labor and delivery; O26.893 Other specified pregnancy related conditions, third trimester; D50.9 Iron deficiency anemia, unspecified; Z3A.38 38 weeks gestation of pregnancy; Z37.0 Single live birth; Z83.3 Family history of diabetes mellitus; Z82.49 Family history of ischemic heart disease and other diseases of the circulatory system; Z84.89 Family history of other specified conditions; Z67.11 Type A blood, Rh negative
CPT/HCPCS: 36415; 85014; 85018; 85025; 85461; 86592; 86850; 86870; 86900; 86901; 96360; 96361; G0378; A6250; J0290; J2590; J2790; J3010; J7120